=== PATIENT | female | born 1960 | race Caucasian/White ===

== ENCOUNTER 2017-09-28 00:59 | Observation (INO) | payer BC ==
[2017-09-28 03:12] VITALS: PULSE 66
[2017-09-28] MEDS ORDERED: ACETAMINOPHEN 500 MG CPLT PO PRN (03:15)
[2017-09-28] MEDS ORDERED: SODIUM CHLORIDE 0.9% FLUSH 10 ML FLUSH IV FLUSH PRN ×2 (03:15)
[2017-09-28] MEDS ORDERED: ONDANSETRON HCL 4 MG/2 ML VIAL IV PUSH PRN (03:15)
[2017-09-28 04:00] VITALS: BP 139/73; PULSE 53; RESP 18; TEMP 98; O2SAT 97
[2017-09-28 04:31] VITALS: PULSE 72
[2017-09-28] MEDS ORDERED: NITROGLYCERIN 2% OINT 1 GM PACKET TOPICAL SCH (06:00)
[2017-09-28 07:10] VITALS: PULSE 66
[2017-09-28 07:14] VITALS: BP 106/58; PULSE 61; RESP 18; TEMP 97.8; O2SAT 97
[2017-09-28] MEDS ORDERED: FAMOTIDINE 20 MG TAB PO SCH (09:00)
--- NOTE | 2017-09-28 09:01 | HHI.HP ---
HPI Primary Care Physician Non-Staff Chief Complaint Chest pain History of Present Illness 57-year-old female with history of hyperlipidemia and hypothyroidism presents to emergency room for further evaluation of chest pain. Onset yesterday afternoon while working hard. Symptoms began as lightheadedness, mild dyspnea, and nausea. Initially felt she may have been overheated therefore went inside to rest. Approximately 30 minutes later developed chest pain. Characterized as "throbbing." Location left anterior chest with radiation to left axillary area. No associated symptoms of nausea, vomiting, dyspnea, or diaphoresis during chest pain episode. Duration 30 minutes. No known precipitating or relieving factors. 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 Denies any other exertional activities causing above symptoms. No known relieving factors. Currently his chest pain-free. Review of Systems General: No fatigue,weakness, fever, chills, or recent illness change in appetite. Has been or general state of health. HEENT: No GARY, no vision changes, no nasal congestion or drainage, no dysphasia CV: As stated above. No current chest pain or pressure. No palpitations. RESP: No SOB, cough, wheeze, recent URI. GI: No nausea, vomiting, bowel changes, diarrhea, constipation, pain, distention , melena, or blood in the stool. : No dysuria, urgency, frequency EXT: No lower leg edema MS: No discomfort or change in ROM NEURO: No difficulty with balance, LOC, motor/sensory deficits PSYCH: No anxiety, depression, or suicidal ideation. History of adult attention deficit disorder. SKIN: No rashes, no concerning lesions Past Family Social History Allergies: Coded Allergies: No Known Allergies (Unverified , 09/27/17) Past Medical History Hyperlipidemia, hypothyroidism, Adult attention deficit disorder, breast cancer , left bundle branch block Past Surgical History Right mastectomy, Right cornea surgery Active Ordered Medications Current Medications Medications (Trade) Dose Ordered Sig/Mona Route Start Time Stop Time Status Last Admin (NS Flush) 2 ml UNSCH PRN IV FLUSH 09/28/17 03:15 (NS Flush) 2 ml UNSCH PRN IV FLUSH 09/28/17 03:15 (Tylenol) 500 mg Q4H PRN PO 09/28/17 03:15 (Zofran Inj) 4 mg Q6H PRN IV PUSH 09/28/17 03:15 (Pepcid) 20 mg BID PO 09/28/17 09:00 (Nitroglycerin 2% Oint) 1 inch Q6H TOPICAL 09/28/17 06:00 (Aspirin) 325 mg DAILY PO 09/29/17 09:00 Family History Noncontributory for early onset cardiovascular disease. Mother had valve replacement. Father CABG surgeries x3 separate surgeries ( age 85). Social History Known hyperlipidemia. No known coronary artery disease, diabetes, hypertension. Lifelong nonsmoker. Denies any alcohol or illegal drug use. Endorse an active lifestyle. Past Cardiac testing none Physical Exam Vital Signs Vital Signs Date Time Temp Pulse Resp B/P (MAP) Pulse Ox O2 Delivery O2 Flow Rate FiO2 09/28/17 07:14 97.8 61 18 106/58 (74) 97 09/28/17 04:31 72 09/28/17 04:00 98.0 53 18 139/73 (95) 97 09/28/17 03:12 66 Physical Exam GENERAL: Alert WN, WD, NAD, pleasant, female HEAD: NC, AT EYES: Sclera clear, conjunctiva without injection, right eye cataract ENT: Mucous membranes pink and moist CV: RRR, without murmur, rub, gallop, no JVD, S1-S2 no S3-S4. Chest wall nontender with palpation. RESP: Clear lungs throughout bilateral, no crackles, wheeze, rhonchi, symmetrical chest rise, nonlabored, able to speak in full sentences ABD: Soft, NT, ND, no masses, positive bowel tones EXT: Pulses +24, no dependent edema MS: Normal tone 4 extremities, nontender, no obvious deformities, full range of motion NEURO: CN II through CN XII grossly intact, motor strength 5/5, gait WNL PSYCH: A+O 3, pleasant affect, appropriate speech, mood, insight and judgment SKIN: Normal turgor, normal texture, no lesions, no rashes, brisk cap refill, even hair distribution Laboratory Initial lab work completed [facility]. CBC unremarkable. CMP unremarkable. D- dimer 0.20. 2 troponins less than 0.02 Laboratory Tests Test 09/28/17 02:42 Troponin I LESS THAN 0.02 Imaging Chest x-ray completed [facility] by radiologist as no acute cardiopulmonary process. Course EKG Normal sinus rhythm, left bundle branch block (patient reports known left bundle branch block) Caprini VTE Risk Assessment Caprini VTE Risk Assessment: No/Low Risk (score <= 1) Caprini Risk Assessment Model Point Value = 1 Point Value = 2 Point Value = 3 Point Value = 5 Age 41-60 Minor surgery BMI > 25 kg/m2 Swollen legs Varicose veins or History of unexplained or recurrent spontaneous Oral contraceptives or hormone replacement Sepsis (< 1 month) Serious lung disease, including pneumonia (< 1 month) Abnormal pulmonary function Acute myocardial infarction Congestive heart failure (< 1 month) History of inflammatory bowel disease Medical patient at bed rest Age 61-74 Arthroscopic surgery Major open surgery (> 45 min) Laparoscopic surgery (> 45 min) Malignancy Confined to bed (> 72 hours) Immobilizing plaster cast Central venous access Age >= 75 History of VTE Family history of VTE Factor V Leiden Prothrombin [id number] Lupus anticoagulant Anticardiolipin antibodies Elevated serum homocysteine Heparin-induced thrombocytopenia Other congenital or acquired thrombophilia Stroke (< 1 month) Elective arthroplasty Hip, pelvis, or leg fracture Acute spinal cord injury (< 1 month) Prophylaxis Regimen Total Risk Factor Score Risk Level Prophylaxis Regimen 0-1 Low Early ambulation 2 Moderate Order ONE of the following: *Sequential Compression Device (SCD) *Heparin 5000 units SQ BID 3-4 Higher Order ONE of the following medications: *Heparin 5000 units SQ TID *Enoxaparin/Lovenox 40 mg SQ daily (WT < 150 kg, CrCl > 30 mL/min) *Enoxaparin/Lovenox 30 mg SQ daily (WT < 150 kg, CrCl > 10-29 mL/min) *Enoxaparin/Lovenox 30 mg SQ BID (WT < 150 kg, CrCl > 30 mL/min) AND/OR *Sequential Compression Device (SCD) 5 or more Highest Order ONE of the following medications: *Heparin 5000 units SQ TID (Preferred with Epidurals) *Enoxaparin/Lovenox 40 mg SQ daily (WT < 150 kg, CrCl > 30 mL/min) *Enoxaparin/Lovenox 30 mg SQ daily (WT < 150 kg, CrCl > 10-29 mL/min) *Enoxaparin/Lovenox 30 mg SQ BID (WT < 150 kg, CrCl > 30 mL/min) AND *Sequential Compression Device (SCD) Assessment and Plan Assessment and Plan #1 Atypical chest pain -admitted to chest pain center. Ruled out with 3 sets of EKGs, cardiac enzymes, and monitored on telemetry overnight. Seen and evaluated by Dr. Jose Luke. Proceed with nuclear exercise stress test. If unremarkable, plan to discharge home with follow-up with PCP. Patient is agreeable plan of care. Jade Puga Sep 28, 2017 09:01
[2017-09-28] MEDS ORDERED: NITROGLYCERIN 0.4 MG SL 25 TABS/BTL SL PRN (09:15)
[2017-09-28 11:29] VITALS: BP 110/58; PULSE 86; RESP 18; TEMP 97.9; O2SAT 100
--- NOTE | 2017-09-28 11:43 | RADRPT ---
EXAM DATE/TIME: 09/28/2017 09:52 [facility] COMPARISON: No previous studies available for comparison. INDICATIONS : Susbternal chest pain. Angina Left bundle branch block. DOSE: 27.2 mCi Tc99m Myoview at stress 8.1 mCi Tc99m Myoview REST HEART RATE: 86 BPM TARGET HEART RATE: 137 BPM MAX HEART RATE: 142 BPM REST BLOOD PRESSURE: 106/80 mmHg MAX BLOOD PRESSURE: 110/80 mmHg EJECTION FRACTION: 34% MEDICAL HISTORY : Carcinoma, breast. Hypertension. SURGICAL HISTORY : Mastectomy, right. ENCOUNTER: Initial ACUITY: 1 day PAIN SCALE: 3/10 LOCATION: Substernal chest TECHNIQUE: The patient underwent upright treadmill exercise in the chest pain center. Continuous ECG tracing wa s monitored during stress. Gated SPECT imaging was performed after stress, and conventional SPECT im aging was performed at rest. The examination was performed on a SPECT/CT scanner, both attenuation-c orrected and non-corrected datasets were reviewed. FINDINGS: DISTRIBUTION: The maximum perfused segment at stress is in the lateral wall. PERFUSION STUDY: There is a large severe anterior and septal perfusion abnormality which extends to the cardiac apex. Mildly diminished perfusion involving the inferior wall. There is no definite redistribution. GATED STUDY: Moderate left ventricular chamber dilatation with Global moderate hypokinesis. CONCLUSION: Large severe LAD territory fixed perfusion abnormality and mildly diminished inferior wall perfusion. No evidence of ischemia. Moderate LV dysfunction RISK CATEGORY: High (>3% Annual Mortality Rate) Hung Springer MD on September 28, 2017 at 11:36 Board Certified Radiologist. This report was verified electronically.
[2017-09-28] MEDS ORDERED: PRIN5TAB PO (12:09)
--- NOTE | 2017-09-28 12:10 | HHI.DCPOC ---
Discharge Care Plan Diagnosis: (1) Atypical chest pain (2) Decreased cardiac ejection fraction Goals to Promote Your Health * To prevent worsening of your condition and complications * To maintain your health at the optimal level Directions to Meet Your Goals Take your medications as prescribed Follow your dietary instruction Follow activity as directed Keep your appointments as scheduled Take your immunizations and boosters as scheduled If your symptoms worsen call your PCP, if no PCP go to Urgent Care Center or Emergency Room Smoking is Dangerous to Your Health. Avoid second hand smoke Call the 24-hour hour crisis hotline for domestic abuse at Jade Puga Sep 28, 2017 12:10
--- NOTE | 2017-09-28 16:16 | EKG ---
Date Performed: 09/28/2017 Time Performed: 01:34:30 PTAGE: 57 years EKG: SINUS BRADYCARDIA POSSIBLE LEFT ATRIAL ENLARGEMENT MARKED LEFT AXIS DEVIATION LEFT BUNDLE B RANCH BLOCK ABNORMAL ECG PREVIOUS TRACING : 09/27/2017 22.02 Since previous tracing, no significant change noted DOCTOR: Jose Luke Interpretating Date/Time 09/28/2017 16:14:32
--- NOTE | 2017-09-28 16:29 | TR ---
Date Performed: 09/28/2017 Time Performed: 10:20:36 DOCTOR: Jose Luke DRUG LIST: CLINICAL HISTORY: REASON FOR TEST: REASON FOR ENDING: OBSERVATION: CONCLUSION: Gal protocol completed. Stopped sec to exceeding target heart rate and leg fatigue . Maximum MT=359 Target HR Achieved=88.0% Maximum UV=955/80 Total Exercise Time=6:21. No reprod chest pain. No ectopy. Baseline left BBB. Normal bp response. Good exercise tolerance. Recovery quick and unremarkable. Nuclear images pending. COMMENTS: LBBB present throughout testing, this is nondiagnostic. Nuclear imaging is pending
[2017-09-29] MEDS ORDERED: ASPIRIN 325 MG TAB PO SCH (09:00)
== END 2017-09-28 15:24 | disposition home or self-care (01) ==
LOC: NEDDLT 00:59 → NEPFCDU 01:09
PROVIDERS: ADMIT Internal Medicine Cardiovascular Disease; ATTEND Internal Medicine Cardiovascular Disease
DX: R07.89 Other chest pain (principal); R06.00 Dyspnea, unspecified; R42 Dizziness and giddiness; R11.0 Nausea; I44.7 Left bundle-branch block, unspecified; R00.1 Bradycardia, unspecified; R94.31 Abnormal electrocardiogram [ECG] [EKG]; I20.9 Angina pectoris, unspecified; E78.5 Hyperlipidemia, unspecified; E03.9 Hypothyroidism, unspecified; Z85.3 Personal history of malignant neoplasm of breast
CPT/HCPCS: 78452; 84484; 93005; 93017; A9502; G0378